=== PATIENT | female | born 1960 | race Caucasian/White ===

== ENCOUNTER 2016-11-02 12:10 | Day surgery (SDC) | payer OTHER ==
[~2016-11-02] VITALS: Ht 152.4 cm; Wt 70.1 kg
[~2016-11-02 12:10] MED LIST: CLON-379 PO
[2016-11-02] MEDS ORDERED: METOPROLOL (12:40)
[2016-11-02] MEDS ORDERED: ASPIRIN (12:40)
[2016-11-02] MEDS ORDERED: AMLODIPINE (12:40)
[2016-11-02] MEDS ORDERED: PRAVASTATIN (12:40)
[2016-11-02 12:51] VITALS: Ht 152.4 cm; Wt 70.1 kg
--- NOTE | 2016-11-02 13:22 | OPPN ---
Date/Time of Note Date/Time of Note DATE: 11/02/16 TIME: 13:21 Operative Report Preoperative Diagnosis Screening Postoperative Diagnosis Internal hemorrhoids Operation/Procedure Performed Colonoscopy Provider: DEWEY GUO MD Anesthesia Type: moderate sedation Estimated blood loss: none Transfusion Required: no Specimen: none Grafts/Implants: none Complications: no DEWEY GUO MD Nov 02, 2016 13:22
[2016-11-02] MEDS ORDERED: FENTAnyl 50 MCG/ML VIAL ONE (13:23)
[2016-11-02] MEDS ORDERED: MIDAZOLAM 1 MG/ML 2 ML INJ ONE ×2 (13:23)
[2016-11-02 13:45] VITALS: BP 137/81; RESP 14
--- NOTE | 2016-11-02 14:37 | GILP ---
DATE OF PROCEDURE: 11/02/2016 SURGEON: Apryl Antunez MD. PROCEDURE PERFORMED: Colonoscopy. PREOPERATIVE DIAGNOSIS: Screening colonoscopy. POSTOPERATIVE DIAGNOSES: 1. Colonoscopy all the way to the cecum. 2. Internal hemorrhoids. 3. No colon neoplasm was identified. INDICATION: Ms. Linda Meraz is 56-year-old female patient who was scheduled for screening colonoscopy. The procedure and possible complications were well explained to the patient, she understood and consented to the procedure. DESCRIPTION OF PROCEDURE: Under influence of fentanyl and Versed, the colonoscope was carefully introduced into the rectum and under direct vision, it was advanced all the way to the cecum. FINDINGS: The patient had internal hemorrhoids. No colon neoplasm was identified. She tolerated the procedure very well. There was no complication from the procedure. At the end of procedure, she was awake with stable vital signs, and she was discharged home in care of her family. IMPRESSION: Please see postop diagnoses. PLAN: Next screening colonoscopy in 10 years. Dictated By: MD CANDIE Awan/[email or web address]/[email or web address] /Document#: [id number] CC: Apryl Antunez MD;*EndCC*
== END 2016-11-02 13:42 | disposition home or self-care (01) ==
LOC: GIL 12:10
PROVIDERS: ATTEND Internal Medicine Gastroenterology
DX: Z12.11 Encounter for screening for malignant neoplasm of colon (principal); K64.8 Other hemorrhoids; I10 Essential (primary) hypertension; E11.9 Type 2 diabetes mellitus without complications
CPT/HCPCS: 45378; J2250; J3010